=== PATIENT | female | born 1985 | race Caucasian/White ===

== ENCOUNTER → 2025-02-26 10:59 | Outpatient (REF) | payer OTHER, SELFPAY ==
[2025-02-26 11:30] VITALS: BP 147/86; BP_SYST 70
[2025-02-26 12:15] VITALS: BP 147/80; BP_SYST 72
== END ==
LOC: RADI 10:59
PROVIDERS: ATTENDING PHYSICIAN Surgery
DX: N61.1 Abscess of the breast and nipple (principal)
CPT/HCPCS: 10030; 87070; 87205; C1729; C1769